=== PATIENT | female | born 2000 | race Caucasian/White ===

== ENCOUNTER 2019-03-25 21:49 | Emergency (ER) | payer MEDICAID ==
[~2019-03-25] VITALS: Ht 165.1 cm; Wt 90.0 kg
[2019-03-25] MEDS ORDERED: silver sulfadiazine cream 400gm jar TP SCH (22:25)
[2019-03-25] MEDS ORDERED: silver sulfadiazine cream 50gm TP ONE (22:35)
[2019-03-25] MEDS ORDERED: silver sulfadiazine cream 50gm TP SCH (22:35)
[2019-03-25 22:56] VITALS: BP 128/52
== END 2019-03-25 22:59 | disposition home or self-care (01) ==
LOC: ER 21:49
DX: T21.12XA Burn of first degree of abdominal wall, initial encounter (principal); T31.0 Burns involving less than 10% of body surface; Z98.890 Other specified postprocedural states; X12.XXXA Contact with other hot fluids, initial encounter; Y93.89 Activity, other specified; Y92.89 Other specified places as the place of occurrence of the external cause; Y99.8 Other external cause status
CPT/HCPCS: 16020; 99284